=== PATIENT | female | born 1950 | race Two or more races ===

== ENCOUNTER 2019-11-05 06:00 | Inpatient (IN) | payer OTHER ==
[~2019-11-05] VITALS: Ht 152.4 cm; Wt 68.0 kg
[~2019-11-05 06:00] MED LIST: CENTRUM MULTIG80 MCG PO; NORVASC2.5 M1 PO; SYNTHROID50 MCG PO; VITAMIN D10000 UNIT PO
[2019-11-06] MEDS ORDERED: PERCOCET 5-3251 EACH PO (18:47)
[2019-11-06] MEDS ORDERED: SYNTHROID112 MCG PO (18:48)
== END 2019-11-06 21:04 | disposition home or self-care (01) | DRG 627 ==
LOC: CIR.AMB 06:00 → O/R 11:15 → EDSTATUS 11:15 → CIR.AMB 11:30 → O/R 13:22 → SURG 13:22
PROVIDERS: ADMIT Surgery
PROC: 0GTK0ZZ Resection of Thyroid Gland, Open Approach (ICD-10-PCS; principal; 2019-11-05 11:30)
DX: C73 Malignant neoplasm of thyroid gland (principal); I11.9 Hypertensive heart disease without heart failure; E03.8 Other specified hypothyroidism; E83.51 Hypocalcemia

== ENCOUNTER 2020-02-13 13:01 | Outpatient (CLI) | payer OTHER ==
[~2020-02-13 13:01] MED LIST changes: +PERCOCET 5-3251 EACH PO; +SYNTHROID112 MCG PO
== END 2020-02-13 13:04 | disposition home or self-care (01) ==
LOC: NUCLEAR 13:01
PROVIDERS: ATTEND Internal Medicine Sports Medicine
DX: C73 Malignant neoplasm of thyroid gland (principal); E89.0 Postprocedural hypothyroidism
CPT/HCPCS: 79005; A9517

== ENCOUNTER 2020-02-18 12:20 | Outpatient (CLI) | payer OTHER | END 2020-02-18 12:26 | disposition home or self-care (01) | LOC: NUCLEAR 12:20 | PROVIDERS: ATTEND Internal Medicine Sports Medicine | DX: C73 Malignant neoplasm of thyroid gland (principal); E89.0 Postprocedural hypothyroidism ==

== ENCOUNTER 2021-05-20 12:49 | Outpatient (CLI) | payer OTHER | END 2021-05-20 12:50 | disposition home or self-care (01) | LOC: NUCLEAR 12:49 | PROVIDERS: ATTEND Internal Medicine Sports Medicine | DX: C73 Malignant neoplasm of thyroid gland (principal) | CPT/HCPCS: 79005; A9517 ==